=== PATIENT | female | born 1935 | race Caucasian/White ===

== ENCOUNTER 2022-03-16 15:31 | Inpatient (IN) | payer MEDICAID ==
[~2022-03-16] VITALS: Ht 162.6 cm; Wt 78.9 kg
--- NOTE | 2022-03-16 15:40 | NUR ---
BIB RA 93 FROM HOME,C/O SOB WITH RHONCHI, IMPROVED AFTER ALBUTEROL HHN WAS GIVEN ENROUTE. PLACED ON BED, AAOX4, BREATHING EVEN AND UNLABORED SATURATING AT 93%RA
--- NOTE | 2022-03-16 16:05 | NUR ---
BLOOD DRAWN AND SENT TO LAB
[2022-03-16 16:26] LABS: BASOPHILS # (AUTO) 0.1 K/uL (0.0-0.2); BASOPHILS % (AUTO) 0.6 % (0.0-2.0); EOSINOPHILS % (AUTO) 1.3 % (0.0-6.0); HEMATOCRIT 39 % (33-45); HEMOGLOBIN 12.2 g/dL (11.5-14.8); LYMPHOCYTES # (AUTO) 1.6 K/uL (0.8-4.8); LYMPHOCYTES % (AUTO) 18.2 % (20.0-44.0); MEAN CORPUSCULAR HGB CONC 32 g/dl (31.0-36.0); MEAN CORPUSCULAR VOLUME 81 fL (82-100); MONOCYTES # (AUTO) 0.3 K/uL (0.1-1.30); MONOCYTES % (AUTO) 3.6 % (2.0-12.0); NEUTROPHILS # (AUTO) 6.6 K/uL (1.8-8.9); NEUTROPHILS % (AUTO) 76.3 % (43.0-81.0); PLATELET COUNT (AUTO) 187 K/uL (150-450); RED BLOOD CELL COUNT(AUTO) 4.78 MIL/uL (4.0-5.2); WHITE BLOOD COUNT (AUTO) 8.6 K/uL (4.3-11.0)
[2022-03-16 16:47] LABS: CALCIUM, SERUM 8.6 mg/dL (8.5-10.1); CARBON DIOXIDE 27 mmol/L (21-32); CHLORIDE 105 mmol/L (98-107); CREATININE 1.9 mg/dL (0.6-1.3); GLUCOSE 237 mg/dL (74-106); POTASSIUM 3.1 mmol/L (3.5-5.1); SODIUM SERUM 143 mmol/L (136-145); UREA NITROGEN, BLOOD 36 mg/dL (7-18)
[2022-03-16] MEDS ORDERED: methylPREDNISolone SOD SUCC 125 MG/2ML VIAL IV ONE (17:00)
[2022-03-16] MEDS ORDERED: IPRATROPIUM NEB FS 0.5 MG/2.5 ML AMPUL.NEB NEB ONE (17:00)
[2022-03-16] MEDS ORDERED: ALBUTEROL FS 2.5 MG/3 ML VIAL.NEB NEB ONE (17:00)
[2022-03-16] MEDS ORDERED: APIX5TAB PO (17:16)
[2022-03-16] MEDS ORDERED: FURO40TA5 PO (17:16)
[2022-03-16] MEDS ORDERED: METO25TA20 PO (17:16)
[2022-03-16] MEDS ORDERED: PRAV10TA40 PO (17:16)
[2022-03-16] MEDS ORDERED: ALBU18HF2 IH (17:16)
[2022-03-16] MEDS ORDERED: HYDR-500 PO (17:16)
[2022-03-16] MEDS ORDERED: LOSA25TA27 PO (17:16)
[2022-03-16] MEDS ORDERED: methylPREDNISolone SOD SUCC 125 MG/2ML VIAL ONE (17:18)
[2022-03-16] MEDS ORDERED: IPRATROPIUM NEB FS 0.5 MG/2.5 ML AMPUL.NEB ONE (17:33)
[2022-03-16] MEDS ORDERED: ALBUTEROL FS 2.5 MG/0.5 ML VIAL.NEB ONE (17:33)
--- NOTE | 2022-03-16 18:20 | NUR ---
MOVE SHEET SUBMITTED.
--- NOTE | 2022-03-16 18:20 | NUR ---
SWAB FOR COVID19 SENT TO LAB
--- NOTE | 2022-03-16 22:28 | NUR ---
REPORT GIVEN TO CAIT RN ROOM 306-2 FOR MICAH
--- NOTE | 2022-03-16 22:57 | NUR ---
TRANSFERRED TO THIRD FLOOR UNDER ACLS
[2022-03-16] MEDS ORDERED: Z GUARD REMEDY 4 OZ OINT TP PRN (23:00)
[2022-03-16] MEDS ORDERED: ONDANSETRON HCL/PF 4 MG/2 ML VIAL IVP PRN (23:00)
[2022-03-16] MEDS ORDERED: ACETAMINOPHEN 325 MG TABLET PO PRN (23:00)
[2022-03-16] MEDS ORDERED: FUROSEMIDE 20 MG/2 ML VIAL IV ONE (23:00)
--- NOTE | 2022-03-16 23:00 | NUR ---
REPORT GIVEN TO EDELMIRA JOHNSON
--- NOTE | 2022-03-16 23:30 | NUR ---
PATIENT READING CONTROLLED A-FIB ON TELE MONITOR WITH 93 BPM.
[2022-03-17] VITALS: BP 158/89
[2022-03-17] MEDS: POTASSIUM CHLORIDE 10 MEQ TABLET.SA PO SCH ×2 (00:03→01:00)
[2022-03-17] MEDS ORDERED: hydrALAZINE HCL IV 20 MG VIAL IV PRN (00:30)
--- NOTE | 2022-03-17 00:55 | NUR ---
ADMISSION RN NOTES PATIENT TRANSFERRED IN UNIT AT AROUND 2300, ACCOMPANIED BY 2 ER NURSES, VIA [employer]. PATIENT IS A/OX4 AND IS CANADIAN SPEAKING ONLY. [facility]Nathalie PLYWOOD PATCHER (ID #[id number]) WAS USED TO ASKED ADMISSION QUESTIONS. PATIENT DENIES ANY PAIN AT THIS TIME. PATIENT WISHES TO BE FULL CODE WITH NO ADVANCED DIRECTIVES. PATIENT REFUSED SS FOR ADVANCED DIRECTIVE INQUIRY BECAUSE PER PATIENT SHE HAS A SW SEE HER VERY OFTEN IN HER HOME. PATIENT REPORTS HAVING A FALL 10 DAYS AGO, AND REPORTS BILA. KNEE SWELLING-- NON PITTING ON ASSESSMENT. PATIENT REPORTS HAVING PACEMAKER ON LCW. DENIES ANY MEDICAL HX BUT HAS HAD BILATERAL HIP REPLACEMENTS. BELONGINGS CHECKED, NEW ID BAND ON PATIENT. PATIENT HAS $20 IN HER BAG, AND REPORTS HAVING UPPER DENTURE. PATIENT DENIES SMOKING AND DRINKING ALCOHOL ONLY ON OCCASIONS. PATIENT REFUSED TO CALL SON AT THIS TIME. PATIENT REPORTS BEING UP-TO-DATE WITH HER IMMUNIZATIONS INCLUDING COVID. ORIENTED IN THE UNIT AND THE USE OF CALL LIGHT. PATIENT IS AMBULATORY WITH UNSTEADY GAIT. REPORTS USING CANE AT HOME. SAFETY IN PLACE. WILL CONTINUE WITH PLAN OF CARE FOR PATIENT AND FOLLOW THROUGH DOCTOR'S ORDERS.
[2022-03-17] MEDS ORDERED: ALBUTEROL FS 2.5 MG/3 ML VIAL.NEB NEB SCH (01:30)
[2022-03-17] MEDS: LEVALBUTEROL HCL NEB 1.25 MG/0.5 ML VIAL.NEB NEB SCH ×4 (02:12→20:05)
[2022-03-17] MEDS: IPRATROPIUM NEB FS 0.5 MG/2.5 ML AMPUL.NEB NEB SCH ×4 (02:12→20:05)
--- NOTE | 2022-03-17 02:17 | NUR ---
noc rn note 2nd dose of K-dur cannot be pulled out because it's pass time. 1st dose was given @0003 and order is q2 hours. asked [facility] to change the time. will give.
[2022-03-17] MEDS ORDERED: POTASSIUM CHLORIDE 10 MEQ TABLET.SA PO ONE (02:30)
[2022-03-17 04:00] VITALS: BP 146/91
[2022-03-17] MEDS: methylPREDNISolone SOD SUCC 40 MG/ML VIAL IV SCH ×3 (05:00→21:50)
[2022-03-17 06:33] LABS: CALCIUM, SERUM 9.7 mg/dL (8.5-10.1); CARBON DIOXIDE 22 mmol/L (21-32); CHLORIDE 105 mmol/L (98-107); CREATININE 1.8 mg/dL (0.6-1.3); GLUCOSE 100 mg/dL (74-106); PHOSPHORUS 3.4 mg/dL (2.5-4.9); POTASSIUM 4.3 mmol/L (3.5-5.1); SODIUM SERUM 136 mmol/L (136-145); UREA NITROGEN, BLOOD 58 mg/dL (7-18)
[2022-03-17 06:44] LABS: BASOPHILS % (AUTO) 0.4 % (0.0-2.0); EOSINOPHILS % (AUTO) 0.1 % (0.0-6.0); HEMATOCRIT 35 % (33-45); HEMOGLOBIN 11.3 g/dL (11.5-14.8); LYMPHOCYTES # (AUTO) 0.5 K/uL (0.8-4.8); LYMPHOCYTES % (AUTO) 5.1 % (20.0-44.0); MEAN CORPUSCULAR HGB CONC 33 g/dl (31.0-36.0); MEAN CORPUSCULAR VOLUME 80 fL (82-100); MONOCYTES # (AUTO) 0.2 K/uL (0.1-1.30); MONOCYTES % (AUTO) 2.6 % (2.0-12.0); NEUTROPHILS # (AUTO) 8.5 K/uL (1.8-8.9); NEUTROPHILS % (AUTO) 91.8 % (43.0-81.0); PLATELET COUNT (AUTO) 187 K/uL (150-450); RED BLOOD CELL COUNT(AUTO) 4.33 MIL/uL (4.0-5.2); WHITE BLOOD COUNT (AUTO) 9.3 K/uL (4.3-11.0)
[2022-03-17] MEDS: PANTOPRAZOLE 40 MG TABLET.DR PO SCH (06:52)
[2022-03-17 07:00] VITALS: BP 155/106
--- NOTE | 2022-03-17 07:35 | NUR ---
noc rn note called son Lynn # regarding mom's hospitalization. son aware of room # and visitation hours. request for to visit before 10 am because they both work. Plaster Caster, Mattie aware and Gricel approved. will make security aware.
--- NOTE | 2022-03-17 07:37 | NUR ---
noc rn closing needs attended. report given to lex Mathis for continuity of patient care.
--- NOTE | 2022-03-17 07:46 | NUR ---
RN OPENING NOTES PATIENT AWAKE IN BED RESTING, A/O X 4. NO S/S OF PAIN NOTED AT THIS TIME. ON ROOM AIR, NO DISTRESS OR SHORTNESS OF BREATH NOTED. IV ACCESS LAC #20G, INTACT, PATENT, FLUSHING WELL. PATIENT WITH EXTERNAL ANNEALING FURNACE TENDER WITH CURRENT READING OF A-FIB CONTROL AND HR 89. FALL AND SAFETY MEASURES IN PLACE, BED ALARM ON, BED IN LOW LOCK POSITION, CALL LIGHT AND TABLE WITHIN EASY REACH, SIDE RAILS UP X2. WILL CONTINUE TO MONITOR.
[2022-03-17 08:17] LABS: HDL CHOLESTEROL 15 mg/dL (40-60); LDL 29 mg/dL (0-99); TRIGLYCERIDES 32 mg/dL (30-150)
[2022-03-17] MEDS ORDERED: Medication Not On Formulary EA (Pravastatin Sodium 10 MG) PO SCH (09:00)
[2022-03-17] MEDS ORDERED: METOPROLOL TARTRATE 25 MG TABLET PO SCH (09:00)
[2022-03-17] MEDS: APIXABAN 5 MG TABLET PO SCH ×2 (09:13→17:00)
[2022-03-17 09:16] LABS: CHOLESTEROL 118 mg/dL (<200)
[2022-03-17 09:42] LABS: BILIRUBIN,URINE NEGATIVE (NEGATIVE); COLOR,URINE YELLOW (YELLOW); LEUKOCYTE ESTERASE ,URINE 2+ (NEGATIVE); NITRITE, URINE NEGATIVE (NEGATIVE); PH,URINE 8.5 (5.0-8.0); PROTEIN,URINE 1+ mg/dl (NEGATIVE); UGLUCOSE NEGATIVE (NEGATIVE); UROBILINOGEN,URINE 0.2 EU/dL (0.2)
[2022-03-17] MEDS ORDERED: BUMETANIDE INJ 8 MG in IV NS 0.9% 48 ML IV ONE (11:00)
[2022-03-17 11:09] LABS: BACTERIA,URINE Few /HPF (None Seen); SQUAMOUS EPITHELIAL CELL,UR Few /HPF (None Seen)
[2022-03-17 11:10] LABS: TRIPLE PHOSPHATE CRYSTAL,UR Rare /HPF (None Seen)
[2022-03-17 12:00] VITALS: BP 143/91
[2022-03-17 12:47] LABS: THYROID STIMULATING HORMONE 1.339 uIU/mL (0.358-3.74)
--- NOTE | 2022-03-17 19:00 | NUR ---
RN CLOSING NOTES PATIENT AWAKE IN BED RESTING, A/O X 4. NO S/S OF PAIN NOTED AT THIS TIME. ON ROOM AIR, NO DISTRESS OR SHORTNESS OF BREATH NOTED. IV ACCESS LAC #20G, INTACT, PATENT, FLUSHING WELL. PATIENT WITH EXTERNAL EXTENSION COURSE COORDINATOR WITH CURRENT READING OF A-FIB CONTROL AND HR 105. SCHEDULE MEDICATIONS ADMINISTERED. FALL AND SAFETY MEASURES IN PLACE, BED ALARM ON, BED IN LOW LOCK POSITION, CALL LIGHT AND TABLE WITHIN EASY REACH, SIDE RAILS UP X2. WILL ENDORSE TO SPINNER OPEN END.
--- NOTE | 2022-03-17 19:05 | NUR ---
FOOD PHOTOGRAPHER OPENING NOTES RECEIVED PT AWAKE IN BED, A/O X4, ABLE TO MAKE NEEDS KNOWN. ON RA WITH NO S/S OF SOB OR LABORED BREATHING. ON TELE MONITOR SHOWING AFIB @ 102 BPM. IV LAC #20G SL, INTACT AND PATENT. SAFETY MEASURES IN PLACE: BED IN LOW AND LOCKED POSITION; SIDE RAILS UP X2; BED ALARM ON; CALL LIGHT AND TRAY TABLE WITHIN REACH. WILL CONTINUE TO MONITOR AND ASSIST.
[2022-03-17 20:15] VITALS: BP 143/93
[2022-03-17] MEDS ORDERED: ATORVASTATIN 10 MG TABLET PO SCH (22:00)
[2022-03-18 00:24] VITALS: BP 149/85
[2022-03-18] MEDS: LEVALBUTEROL HCL NEB 1.25 MG/0.5 ML VIAL.NEB NEB SCH ×4 (02:01→19:59)
[2022-03-18] MEDS: IPRATROPIUM NEB FS 0.5 MG/2.5 ML AMPUL.NEB NEB SCH ×4 (02:01→19:59)
[2022-03-18 04:03] VITALS: BP 144/80
[2022-03-18] MEDS: methylPREDNISolone SOD SUCC 40 MG/ML VIAL IV SCH ×3 (05:02→20:12)
[2022-03-18 06:13] LABS: ALANINE AMINOTRANSFERASE 22 U/L (12-78); ALBUMIN 3.7 g/dL (3.4-5.0); ALKALINE PHOSPHATASE 84 U/L (46-116); ASPARTATE AMINOTRANSFERASE 13 U/L (15-37); BILIRUBIN,TOTAL 0.4 mg/dL (0.2-1.0); CALCIUM, SERUM 9.1 mg/dL (8.5-10.1); CARBON DIOXIDE 25 mmol/L (21-32); CHLORIDE 104 mmol/L (98-107); CREATININE 1.7 mg/dL (0.6-1.3); GLUCOSE 201 mg/dL (74-106); PHOSPHORUS 3.2 mg/dL (2.5-4.9); POTASSIUM 3.6 mmol/L (3.5-5.1); SODIUM SERUM 142 mmol/L (136-145); TOTAL PROTEIN, SERUM 7.3 g/dL (6.4-8.2); UREA NITROGEN, BLOOD 38 mg/dL (7-18)
[2022-03-18] MEDS ORDERED: DIGOXIN INJ 0.5 MG/2 ML AMPUL IV ONE (06:30)
--- NOTE | 2022-03-18 06:41 | NUR ---
RN NOTE NOTED PT THIS MORNING WITH UNCONTROLLED A-FIB FLUCTUATING 160-190s. REPORTED TO DR PRINCE RECEIVED ORDER FOR ONE TIME DOSE OF DIGOXIN 0.25MG X1 GIVEN TO PT TOLERATED WELL. PT NOW READING A-FIB 120-130S AT THIS TIME.
[2022-03-18 06:51] LABS: BASOPHILS % (AUTO) 0.1 % (0.0-2.0); HEMATOCRIT 36 % (33-45); HEMOGLOBIN 11.5 g/dL (11.5-14.8); LYMPHOCYTES # (AUTO) 0.5 K/uL (0.8-4.8); LYMPHOCYTES % (AUTO) 4.4 % (20.0-44.0); MEAN CORPUSCULAR HGB CONC 32 g/dl (31.0-36.0); MEAN CORPUSCULAR VOLUME 81 fL (82-100); MONOCYTES # (AUTO) 0.4 K/uL (0.1-1.30); NEUTROPHILS # (AUTO) 10.2 K/uL (1.8-8.9); NEUTROPHILS % (AUTO) 91.5 % (43.0-81.0); PLATELET COUNT (AUTO) 196 K/uL (150-450); RED BLOOD CELL COUNT(AUTO) 4.45 MIL/uL (4.0-5.2); WHITE BLOOD COUNT (AUTO) 11.1 K/uL (4.3-11.0)
[2022-03-18 07:00] VITALS: BP 163/116
--- NOTE | 2022-03-18 07:05 | NUR ---
RESIDENTIAL RECYCLE DRIVER CLOSING NOTES PT AWAKE IN BED, A/O X4, ABLE TO MAKE NEEDS KNOWN. STABLE ON RA WITH NO S/S OF SOB OR LABORED BREATHING. ON TELE MONITOR SHOWING AFIB WITH PVCs @ 130 BPM. IV LAC #20G SL, INTACT AND PATENT. ALL CARE PROVIDED AND MEDICATIONS ADMINISTERED TOLERATED WELL. SAFETY MEASURES MAINTAINED: BED IN LOW AND LOCKED POSITION; SIDE RAILS UP X2; BED ALARM ON; CALL LIGHT AND TRAY TABLE WITHIN REACH. WILL ENDORSE MICAH TO COMPUTATIONAL GENETICIST NURSE.
--- NOTE | 2022-03-18 07:40 | NUR ---
HOME THERAPY TEACHER OPENING NOTES RECEIVED PT AWAKE IN BED, A/O X4, ABLE TO MAKE NEEDS KNOWN. ON RA WITH NO S/S OF SOB OR LABORED BREATHING. TELE MONITOR READS AFIB HR-106. IV ACCESS @ LAC #20G SL, INTACT AND PATENT. PT IS AMBULATORY. SAFETY MEASURES IN PLACE: BED IN LOW AND LOCKED POSITION; SIDE RAILS UP X2; BED ALARM ON; CALL LIGHT AND TRAY TABLE WITHIN REACH. WILL CONTINUE WITH PLAN OF CARE DURING SHIFT.
[2022-03-18] MEDS: DILTIAZEM HCL CD 240 MG PO SCH ×2 (09:00→09:01)
[2022-03-18] MEDS: APIXABAN 5 MG TABLET PO SCH ×2 (09:03→17:09)
--- NOTE | 2022-03-18 09:45 | NUR ---
SUPERVISOR CLAIMS NOTES: DISREGARD WEIGHT ENTRY 03/18/22 FOR THIS PT, ERROR, CORRECT WT ENTERED.
[2022-03-18] MEDS: PANTOPRAZOLE 40 MG TABLET.DR PO SCH (11:07)
[2022-03-18 12:00] VITALS: BP 163/92
[2022-03-18] MEDS: DIGOXIN INJ 0.5 MG/2 ML AMPUL IV SCH ×2 (12:29→17:07)
[2022-03-18 16:00] VITALS: BP 157/88
[2022-03-18] MEDS: SOD FERRIC GLUC 125 MG in IV NS 0.9% 100 ML IV SCH (16:28)
--- NOTE | 2022-03-18 19:35 | NUR ---
BLUEPRINT MAKER CLOSING NOTES PT AWAKE IN BED, A/O X4, ABLE TO MAKE NEEDS KNOWN. STABLE ON RA WITH NO S/S OF SOB OR LABORED BREATHING. ON TELE MONITOR SHOWING AFIB WITH PVCs, HR-98. IV ACCESS AT L WRIST #22G SL, INTACT AND PATENT. DUE MEDS GIVEN, NEEDS ATTENDED, KEPT PT CLEAN, DRY AND COMFORTABLE. SAFETY MEASURES MAINTAINED: BED IN LOW AND LOCKED POSITION; SIDE RAILS UP X2; BED ALARM ON; CALL LIGHT AND TRAY TABLE WITHIN REACH, ENDORSED TO PM SHIFT.
--- NOTE | 2022-03-18 19:36 | NUR ---
BOWLING BALL PATCHER OPENING NOTES RECEIVED PT AWAKE IN BED, A/O X4, ABLE TO MAKE NEEDS KNOWN. ON RA WITH NO S/S OF SOB OR LABORED BREATHING. ON TELE MONITOR SHOWING AFIB WITH PVCs, HR-125. IV ACCESS AT L WRIST #22G SL, INTACT AND PATENT. SAFETY MEASURES IN PLACE: BED IN LOW AND LOCKED POSITION; SIDE RAILS UP X2; BED ALARM ON; CALL LIGHT AND TRAY TABLE WITHIN REACH. WILL CONTINUE TO MONITOR AND ASSIST.
[2022-03-18 20:00] VITALS: BP 117/81
[2022-03-19] VITALS: BP 148/82
[2022-03-19] MEDS: DIGOXIN INJ 0.5 MG/2 ML AMPUL IV SCH (00:35)
[2022-03-19] MEDS: IPRATROPIUM NEB FS 0.5 MG/2.5 ML AMPUL.NEB NEB SCH ×4 (02:22→20:22)
[2022-03-19] MEDS: LEVALBUTEROL HCL NEB 1.25 MG/0.5 ML VIAL.NEB NEB SCH ×4 (02:22→20:22)
[2022-03-19 04:00] VITALS: BP 146/76
[2022-03-19] MEDS: methylPREDNISolone SOD SUCC 40 MG/ML VIAL IV SCH ×2 (05:09→12:07)
[2022-03-19 05:43] LABS: HEMATOCRIT 39 % (33-45); HEMOGLOBIN 12.7 g/dL (11.5-14.8); LYMPHOCYTES # (AUTO) 0.5 K/uL (0.8-4.8); LYMPHOCYTES % (AUTO) 5.1 % (20.0-44.0); MEAN CORPUSCULAR HGB CONC 33 g/dl (31.0-36.0); MEAN CORPUSCULAR VOLUME 80 fL (82-100); MONOCYTES # (AUTO) 0.3 K/uL (0.1-1.30); MONOCYTES % (AUTO) 3.1 % (2.0-12.0); NEUTROPHILS # (AUTO) 9.4 K/uL (1.8-8.9); NEUTROPHILS % (AUTO) 91.8 % (43.0-81.0); PLATELET COUNT (AUTO) 220 K/uL (150-450); RED BLOOD CELL COUNT(AUTO) 4.85 MIL/uL (4.0-5.2); WHITE BLOOD COUNT (AUTO) 10.3 K/uL (4.3-11.0)
[2022-03-19 05:59] LABS: CALCIUM, SERUM 9.1 mg/dL (8.5-10.1); CARBON DIOXIDE 27 mmol/L (21-32); CHLORIDE 104 mmol/L (98-107); CREATININE 1.6 mg/dL (0.6-1.3); GLUCOSE 193 mg/dL (74-106); PHOSPHORUS 3.7 mg/dL (2.5-4.9); POTASSIUM 3.6 mmol/L (3.5-5.1); SODIUM SERUM 143 mmol/L (136-145); UREA NITROGEN, BLOOD 44 mg/dL (7-18)
--- NOTE | 2022-03-19 07:10 | NUR ---
COSTUME DESIGNER CLOSING NOTES PT AWAKE IN BED AT THIS TIME, A/O X4, ABLE TO MAKE NEEDS KNOWN, SPEAKS LITTLE PERUVIAN. STABLE ON RA WITH NO S/S OF SOB OR LABORED BREATHING. ON TELE MONITOR SHOWING AFIB WITH PVCs, HR-108. IV ACCESS AT L WRIST #22G SL, INTACT AND PATENT. ALL CARE PROVIDED AND ADMINISTERED MEDICATIONS TOLERATED WELL. SAFETY MEASURES MAINTAINED: BED IN LOW AND LOCKED POSITION; SIDE RAILS UP X2; BED ALARM ON; CALL LIGHT AND TRAY TABLE WITHIN REACH. WILL ENDORSE MICAH TO GROOMING ASSISTANT NURSE.
--- NOTE | 2022-03-19 07:15 | NUR ---
FEED IN WORKER OPENING NOTES: RECEIVED PT AWAKE IN BED, A/O X4, ABLE TO MAKE NEEDS KNOWN. STABLE ON RA WITH NO S/S OF SOB OR LABORED BREATHING, DENIES PAIN AT THIS TIME. ON TELE MONITOR READING AFIB, HR-99. IV ACCESS AT L WRIST #22G SL, INTACT AND PATENT. SAFETY MEASURES MAINTAINED: BED IN LOW AND LOCKED POSITION; SIDE RAILS UP X2; BED ALARM ON; CALL LIGHT AND TRAY TABLE WITHIN REACH, WILL CONT WITH PLAN OF CARE DURING SHIFT.
[2022-03-19 08:00] VITALS: BP 145/94
[2022-03-19] MEDS: PANTOPRAZOLE 40 MG TABLET.DR PO SCH (08:30)
[2022-03-19] MEDS: DILTIAZEM HCL CD 240 MG PO SCH (08:33)
[2022-03-19] MEDS: APIXABAN 5 MG TABLET PO SCH ×2 (08:34→16:18)
[2022-03-19] MEDS: MUPIROCIN OINT 2% 22 GM TUBE NS SCH ×2 (09:26→21:19)
[2022-03-19] MEDS: CEFTRIAXONE 1 G in IV D5W 50 ML IV SCH (10:05)
[2022-03-19 12:00] VITALS: BP 148/80
[2022-03-19] MEDS: DIGOXIN 0.125 MG TABLET PO SCH (12:07)
[2022-03-19 16:00] VITALS: BP 134/74
[2022-03-19] MEDS: SOD FERRIC GLUC 125 MG in IV NS 0.9% 100 ML IV SCH (17:23)
--- NOTE | 2022-03-19 19:20 | NUR ---
RN NOTES RECEIVED REPORT FROM MORNING RN PATIENT IN BED A/O X4 GUYANESE SPEAKING. ON ROOM AIR SATING 95% NO SOB NO DISTRESS NOTED AT THIS TIME. WITH IV ACCESS AT L WRIST #22 PATENT FLUSHES WELL. ON TELE MONITOR WITH RHYTHM AFIB @ 95. ALL SAFETY MEASURES IN PLACE AT ALL TIMES. HOB ELEVATED. CALL LIGHT WITHIN REACH. WILL CLOSELY MONITOR THE PATIENT
--- NOTE | 2022-03-19 19:23 | NUR ---
AUTO GLASS WORKER CLOSING NOTES PT AWAKE IN BED, A/O X4, ABLE TO MAKE NEEDS KNOWN. STABLE ON RA WITH NO S/S OF SOB OR LABORED BREATHING. ON TELE MONITOR SHOWING AFIB, HR-89. IV ACCESS AT L WRIST #22G SL, INTACT AND PATENT. DUE MEDS GIVEN, NEEDS ATTENDED, KEPT PT CLEAN, DRY AND COMFORTABLE. SAFETY MEASURES MAINTAINED: BED IN LOW AND LOCKED POSITION; SIDE RAILS UP X2; BED ALARM ON; CALL LIGHT AND TRAY TABLE WITHIN REACH, ENDORSED TO PM SHIFT
[2022-03-20] MEDS: IPRATROPIUM NEB FS 0.5 MG/2.5 ML AMPUL.NEB NEB SCH ×4 (01:58→20:18)
[2022-03-20] MEDS: LEVALBUTEROL HCL NEB 1.25 MG/0.5 ML VIAL.NEB NEB SCH ×4 (01:58→20:18)
[2022-03-20 05:00] VITALS: BP 142/83
[2022-03-20 06:17] LABS: CALCIUM, SERUM 8.9 mg/dL (8.5-10.1); CARBON DIOXIDE 25 mmol/L (21-32); CHLORIDE 103 mmol/L (98-107); CREATININE 1.8 mg/dL (0.6-1.3); GLUCOSE 164 mg/dL (74-106); POTASSIUM 4.2 mmol/L (3.5-5.1); SODIUM SERUM 140 mmol/L (136-145); UREA NITROGEN, BLOOD 49 mg/dL (7-18)
[2022-03-20 06:27] LABS: BASOPHILS % (AUTO) 0.1 % (0.0-2.0); HEMATOCRIT 42 % (33-45); HEMOGLOBIN 13.6 g/dL (11.5-14.8); LYMPHOCYTES # (AUTO) 0.8 K/uL (0.8-4.8); LYMPHOCYTES % (AUTO) 6.7 % (20.0-44.0); MEAN CORPUSCULAR HGB CONC 33 g/dl (31.0-36.0); MEAN CORPUSCULAR VOLUME 80 fL (82-100); MONOCYTES # (AUTO) 0.9 K/uL (0.1-1.30); NEUTROPHILS # (AUTO) 10.8 K/uL (1.8-8.9); NEUTROPHILS % (AUTO) 86.2 % (43.0-81.0); PLATELET COUNT (AUTO) 258 K/uL (150-450); RED BLOOD CELL COUNT(AUTO) 5.23 MIL/uL (4.0-5.2); WHITE BLOOD COUNT (AUTO) 12.5 K/uL (4.3-11.0)
[2022-03-20] MEDS: PANTOPRAZOLE 40 MG TABLET.DR PO SCH (06:45)
--- NOTE | 2022-03-20 06:54 | NUR ---
RN NOTES PATIENT REMAINS STABLE NO SIGNIFICANT CHANGES IN HEALTH CONDITION. ALL DUE MEDS GIVEN ORDERED. OM TELE MONITOR WITH AFIB AT 89. IV ACCESS AT L WRIST PATNET FLUSHES WELL. ALL SAFETY MEASURES IN PLACE. CALL LIGHT WITHIN REACH. FREQUENT VISUAL MONITORING RENDERED. WILL ENDORSED TO MORNING SHIFT FOR MICAH
[2022-03-20 08:00] VITALS: BP 147/82
[2022-03-20] MEDS: FUROSEMIDE 100 MG/10 ML VIAL IV SCH ×3 (08:49→16:07)
[2022-03-20] MEDS: MUPIROCIN OINT 2% 22 GM TUBE NS SCH ×2 (08:50→21:53)
[2022-03-20] MEDS: DILTIAZEM HCL CD 240 MG PO SCH (08:50)
[2022-03-20] MEDS: methylPREDNISolone SOD SUCC 40 MG/ML VIAL IV SCH ×2 (08:50→16:07)
[2022-03-20] MEDS: CEFTRIAXONE 1 G in IV D5W 50 ML IV SCH (08:52)
[2022-03-20] MEDS: APIXABAN 5 MG TABLET PO SCH ×2 (08:52→16:07)
--- NOTE | 2022-03-20 09:17 | NUR ---
EDELMIRA NOTE DAILY WEIGHT TAKEN ON AIR MATTRESS, CHARGE NURSE AWARE, WILL ENDORSE TO SKI PRODUCTION SUPERVISOR NURSE Addendum: 03/20/22 at 0918 by YUEN NOLASCO RN 185.7 LBS ON BED SCALE Addendum: 03/20/22 at 0919 by UYEN NOLASCO RN WRONG PATIENT
[2022-03-20] MEDS: DIGOXIN 0.125 MG TABLET PO SCH (13:38)
[2022-03-20] MEDS: SOD FERRIC GLUC 125 MG in IV NS 0.9% 100 ML IV SCH (15:02)
[2022-03-20 16:00] VITALS: BP 122/72
--- NOTE | 2022-03-20 19:00 | NUR ---
OUTDOOR EMERGENCY CARE TECHNICIAN OPENING NOTE PATIENT IS OUT FOR SURGERY, NOT COMING BACK TO UNIT YET . CHANGE SHIFT REPORT RECEIVED FROM DAY SHIFT RN. Addendum: 03/20/22 at 2108 by DAVID AMARO RN ERROR. WRONG PATIENT
--- NOTE | 2022-03-20 19:10 | NUR ---
CONTRACT PREPARER OPENING NOTES PATIENT IS IN BED SLEEPING. EASILY BEING WAKING UP. PATIENT IS ALERT AND ORIENTED, A/O X4. SHE IS ABLE TO MAKE HER NEEDS KNOWN. PATIENT IS ON RA, TOLERATED WELL. NO S/S OF SOB OR DISTRESS. PATIENT IS ON TELE MONITOR, HEART RHYTHM IS A-FIB WITH PVCS. IV ACCESS IS AT LEFT WRIST, #22G, SL. SAFETY PRECAUTIONS IN PLACE: BED IN LOW AND LOCKED POSITION; SIDE RAILS UP X2; CALL LIGHT AND TRAY TABLE WITHIN REACH. WILL MONITOR AND CONTINUE PROVIDING CARE TO THE PATIENT THROUGH THE SHIFT.
--- NOTE | 2022-03-20 19:15 | NUR ---
RN CLOSING NOTES PATIENT REMAINS STABLE NO SIGNIFICANT CHANGES IN HEALTH CONDITION. ALL DUE MEDS GIVEN ORDERED. TELE MONITOR WITH AFIB AT 85 WITH PVC RUNS. IV ACCESS AT L WRIST PATENT SL, AND FLUSHES WELL. ALL SAFETY MEASURES IN PLACE. CALL LIGHT WITHIN REACH. FREQUENT VISUAL MONITORING RENDERED. WILL ENDORSE CONTINUITY OF CARE.
[2022-03-20 20:00] VITALS: BP 149/84
[2022-03-21] VITALS: BP 147/92
[2022-03-21] MEDS: IPRATROPIUM NEB FS 0.5 MG/2.5 ML AMPUL.NEB NEB SCH ×3 (00:41→13:30)
[2022-03-21] MEDS: LEVALBUTEROL HCL NEB 1.25 MG/0.5 ML VIAL.NEB NEB SCH ×3 (00:41→13:30)
[2022-03-21 04:00] VITALS: BP 144/69
[2022-03-21 06:23] LABS: BASOPHILS % (AUTO) 0.1 % (0.0-2.0); HEMATOCRIT 44 % (33-45); HEMOGLOBIN 14.3 g/dL (11.5-14.8); LYMPHOCYTES # (AUTO) 0.7 K/uL (0.8-4.8); LYMPHOCYTES % (AUTO) 6.4 % (20.0-44.0); MEAN CORPUSCULAR HGB CONC 33 g/dl (31.0-36.0); MEAN CORPUSCULAR VOLUME 80 fL (82-100); MONOCYTES # (AUTO) 0.6 K/uL (0.1-1.30); MONOCYTES % (AUTO) 5.7 % (2.0-12.0); NEUTROPHILS # (AUTO) 9.4 K/uL (1.8-8.9); NEUTROPHILS % (AUTO) 87.8 % (43.0-81.0); PLATELET COUNT (AUTO) 260 K/uL (150-450); RED BLOOD CELL COUNT(AUTO) 5.51 MIL/uL (4.0-5.2); WHITE BLOOD COUNT (AUTO) 10.7 K/uL (4.3-11.0)
[2022-03-21 06:56] LABS: CALCIUM, SERUM 8.8 mg/dL (8.5-10.1); CARBON DIOXIDE 29 mmol/L (21-32); CHLORIDE 101 mmol/L (98-107); CREATININE 1.7 mg/dL (0.6-1.3); GLUCOSE 182 mg/dL (74-106); POTASSIUM 3.6 mmol/L (3.5-5.1); SODIUM SERUM 142 mmol/L (136-145); UREA NITROGEN, BLOOD 55 mg/dL (7-18)
--- NOTE | 2022-03-21 07:06 | NUR ---
CLERICAL MANAGER CLOSING NOTES PATIENT IS IN BED SLEEPING. EASILY BEING WAKING UP. PATIENT IS ON RA, TOLERATED WELL. NO S/S OF SOB OR DISTRESS. PATIENT IS ON TELE MONITOR, HEART RHYTHM IS A-FIB WITH PVCS AT 80S TO 90S. HER HR GOES AROUND 100S WHEN SHE GOES TO THE BATHROOM. IV ACCESS IS AT LEFT WRIST, #22G, SL. PATENT AND INTACT. SAFETY PRECAUTIONS IN PLACE: BED IN LOW AND LOCKED POSITION; SIDE RAILS UP X2; CALL LIGHT AND TRAY TABLE WITHIN REACH. WILL ENDORSE NEXT SHIFT NURSE FOR CONTINUE CARE OF THIS PATIENT.
--- NOTE | 2022-03-21 07:07 | NUR ---
BIRTH CERTIFICATE CLERK OPENING NOTES RECEIVED PATIENT AWAKE IN BED, A/Ox4, ETHIOPIAN SPEAKING, ABLE TO MAKE NEEDS KNOWN. ON ROOM AIR NO S/S OF RESPIRATORY DISTRESS. ON TELE MONITORING SHOWING A-FIB WITH PVCs HR 84. IV ACCES L WRIST #22 SL. INTACT AND PATENT. CONTINENT HAS BATHROOM PRIVILEGE. SKIN INTACT. SAFETY MEASURES IN PLACE: BED LOCKED AND IN LOWEST POSITION, SIDE RAILS UPx2, CALL LIGHT WITHIN REACH, HOB ELEVATED. WILL CONTINUE TO MONITOR.
[2022-03-21 08:00] VITALS: BP 144/73
[2022-03-21] MEDS: PANTOPRAZOLE 40 MG TABLET.DR PO SCH (08:11)
[2022-03-21 08:12] VITALS: BP 144/73
[2022-03-21] MEDS: methylPREDNISolone SOD SUCC 40 MG/ML VIAL IV SCH (08:12)
[2022-03-21] MEDS: DILTIAZEM HCL CD 240 MG PO SCH (08:12)
[2022-03-21] MEDS: APIXABAN 5 MG TABLET PO SCH (08:12)
[2022-03-21] MEDS: MUPIROCIN OINT 2% 22 GM TUBE NS SCH (08:18)
[2022-03-21] MEDS: CEFTRIAXONE 1 G in IV D5W 50 ML IV SCH (09:17)
[2022-03-21] MEDS ORDERED: ALBU18HF2 IH (09:43)
[2022-03-21] MEDS ORDERED: PRED50TA PO (09:43)
[2022-03-21] MEDS ORDERED: LEVO500T90 PO (09:43)
[2022-03-21] MEDS: DIGOXIN 0.125 MG TABLET PO SCH (12:24)
--- NOTE | 2022-03-21 15:00 | NUR ---
ONLINE ADVERTISING ANALYST NOTES PATIENT D/C HOME, STABLE A/Ox4, ABLE TO MAKE NEEDS KNOWN. STABLE ON ROOM AIR, NO S/S OF RESPIRATORY DISTRESS. HEALTH TEACHINGS AND DISCHARGE INSTRUCTIONS TOLD TO FAMILY AND PATIENT. VERBALIZED UNDERSTANDING. FORMS COPIED AND FILED INTO CHART. SKIN INTACT. IV ACCESS REMOVED, PRESSURE DRESSING APPLIED. ID BAND REMOVED. PATIENT LEFT UNIT VIA WHEELCHAIR WITH SON ACCOMPANIED BY AURY MCINTOSH @1430. CHARGE NURSE AND MD AWARE OF DISCHARGE.
== END 2022-03-21 13:00 | disposition home or self-care (01) | DRG 194 ==
LOC: ER 15:34 → TELE 20:51
PROVIDERS: ADMIT Nurse Practitioner Acute Care; ATTEND Nurse Practitioner Acute Care
DX: I13.0 Hypertensive heart and chronic kidney disease with heart failure and stage 1 through stage 4 chronic kidney disease, or unspecified chronic kidney disease (principal); N17.0 Acute kidney failure with tubular necrosis; J96.01 Acute respiratory failure with hypoxia; J45.901 Unspecified asthma with (acute) exacerbation; I27.20 Pulmonary hypertension, unspecified; N39.0 Urinary tract infection, site not specified; I48.20 Chronic atrial fibrillation, unspecified; B96.4 Proteus (mirabilis) (morganii) as the cause of diseases classified elsewhere; E11.22 Type 2 diabetes mellitus with diabetic chronic kidney disease; N18.9 Chronic kidney disease, unspecified; I50.33 Acute on chronic diastolic (congestive) heart failure; E11.65 Type 2 diabetes mellitus with hyperglycemia; E78.5 Hyperlipidemia, unspecified; Z95.0 Presence of cardiac pacemaker; E87.6 Hypokalemia; D50.9 Iron deficiency anemia, unspecified; Z20.822 Contact with and (suspected) exposure to COVID-19
CPT/HCPCS: 36415; 71045-TC; 76770-TC; 80048-TC; 80053-TC; 80061-TC; 81001; 82728-TC; 83540-TC; 83735-TC; 83880; 84100-TC; 84439-TC; 84443-TC; 84484-TC; 85025-TC; 87081-TC; 87086-TC; 87186-TC; 92526; 92611-TC; 93307-TC; 93970-TC; 94799-TC; 97112-TC; 97116-TC; 97530-TC; C9803; G0378; J0696; J1160; J1940; J2916; J2920; J2930; J3490; J7030; J7050; J7060

== ENCOUNTER 2024-10-09 11:31 | Inpatient (IN) | payer MEDICAID ==
[~2024-10-09] VITALS: Ht 162.6 cm; Wt 80.7 kg
[~2024-10-09 11:31] MED LIST: ALBU18HF2 IH; APIX5TAB PO; FURO40TA5 PO; HYDR-500 PO; LEVO500T90 PO; LOSA25TA27 PO; METO25TA20 PO; PRAV10TA40 PO; PRED50TA PO
[2024-10-09 11:58] LABS: BASOPHILS # (AUTO) 0.1 K/uL (0.0-0.2); EOSINOPHILS # (AUTO) 0.1 K/uL (0.0-0.7); EOSINOPHILS % (AUTO) 1.4 % (0.0-6.0); HEMATOCRIT 27 % (33-45); HEMOGLOBIN 8.6 g/dL (11.5-14.8); LYMPHOCYTES # (AUTO) 1.5 K/uL (0.8-4.8); LYMPHOCYTES % (AUTO) 14.4 % (20.0-44.0); MEAN CORPUSCULAR HEMOGLOBIN 27 PG (26.0-33.0); MEAN CORPUSCULAR HGB CONC 32 g/dl (31.0-36.0); MEAN CORPUSCULAR VOLUME 85 fL (82-100); MONOCYTES # (AUTO) 0.8 K/uL (0.1-1.30); MONOCYTES % (AUTO) 7.9 % (2.0-12.0); NEUTROPHILS # (AUTO) 7.7 K/uL (1.8-8.9); NEUTROPHILS % (AUTO) 75.3 % (43.0-81.0); PLATELET COUNT (AUTO) 374 K/uL (150-450); RED BLOOD CELL COUNT(AUTO) 3.16 MIL/uL (4.0-5.2); RED CELL DISTRIBUTION WIDTH 18.3 % (11.5-15.0); WHITE BLOOD COUNT (AUTO) 10.2 K/uL (4.3-11.0)
[2024-10-09 12:09] LABS: CALCIUM, SERUM 8.9 mg/dL (8.5-10.1); CARBON DIOXIDE 24 mmol/L (21-32); CHLORIDE 106 mmol/L (98-107); CREATININE 0.8 mg/dL (0.6-1.3); GLUCOSE 152 mg/dL (74-106); POTASSIUM 3.5 mmol/L (3.5-5.1); SODIUM SERUM 138 mmol/L (136-145); UREA NITROGEN, BLOOD 23 mg/dL (7-18)
[2024-10-09 12:15] LABS: ALANINE AMINOTRANSFERASE 48 U/L (12-78); ALKALINE PHOSPHATASE 167 U/L (46-116); ASPARTATE AMINOTRANSFERASE 50 U/L (15-37); BILIRUBIN,DIRECT 0.3 mg/dL (0.0-0.2); BILIRUBIN,TOTAL 0.6 mg/dL (0.2-1.0); LIPASE 28 U/L (16-77); TOTAL PROTEIN, SERUM 7.3 g/dL (6.4-8.2)
[2024-10-09 12:20] LABS: MAGNESIUM 2.2 mg/dL (1.8-2.4)
[2024-10-09 12:23] LABS: THYROID STIMULATING HORMONE 5.13 uIU/mL (0.358-3.74)
[2024-10-09 12:33] LABS: APPEARANCE,URINE CLEAR (CLEAR); BILIRUBIN,URINE NEGATIVE (NEGATIVE); BLOOD, URINE TRACE-INTA Ery/uL (NEGATIVE); COLOR,URINE YELLOW (YELLOW); KETONES,URINE TRACE mg/dL (NEGATIVE); LEUKOCYTE ESTERASE ,URINE NEGATIVE (NEGATIVE); NITRITE, URINE NEGATIVE (NEGATIVE); PH,URINE 5.5 (5.0-8.0); PROTEIN,URINE TRACE mg/dl (NEGATIVE); UGLUCOSE NEGATIVE (NEGATIVE)
[2024-10-09] MEDS ORDERED: FUROSEMIDE 40 MG/4 ML VIAL ONE (12:38)
[2024-10-09] MEDS: FUROSEMIDE 40 MG/4 ML VIAL IV ONE (12:42)
[2024-10-09 12:49] LABS: ADD URINE CULTURE NO; BACTERIA,URINE Rare /HPF (None Seen); RBC,URINE 0-2 /HPF (0-2); SQUAMOUS EPITHELIAL CELL,UR 0-2 /HPF (None Seen); WBC,URINE 0-2 /HPF (0-3)
[2024-10-09 12:50] LABS: CALCIUM OXALATE CRYSTALS,UR Moderate /HPF (None Seen)
[2024-10-09] MEDS ORDERED: ACETAMINOPHEN 325 MG TABLET PO PRN (13:30)
[2024-10-09] MEDS ORDERED: MAG HYDROX/AL HYDROX/SIMETH 30 ML UDC PO PRN (13:30)
[2024-10-09] MEDS ORDERED: Z GUARD REMEDY 4 OZ OINT TP PRN (13:30)
[2024-10-09] MEDS ORDERED: ONDANSETRON HCL/PF 4 MG/2 ML VIAL IVP PRN (13:30)
[2024-10-09] MEDS ORDERED: MAGNESIUM HYDROXIDE 30 ML UDC PO PRN (13:30)
[2024-10-09 14:45] VITALS: BP 156/77; TEMP 97.7; O2SAT 97
[2024-10-09] MEDS: ENOXAPARIN SODIUM 40 MG/0.4 ML DISP.SYRIN SQ SCH (14:46)
[2024-10-09 16:00] VITALS: BP 146/73; TEMP 97.7; O2SAT 97
[2024-10-09 20:00] VITALS: BP 172/68; TEMP 98.8; O2SAT 98
[2024-10-09] MEDS: FUROSEMIDE 20 MG/2 ML VIAL IV SCH (20:44)
[2024-10-10] VITALS (9 sets, daily range): BP systolic 145–169; BP diastolic 59–83; TEMP 98.1–99.7; O2SAT 94–99
[2024-10-10] MEDS: hydrALAZINE HCL IV 20 MG VIAL IV PRN (00:16)
[2024-10-10 06:57] LABS: BASOPHILS # (AUTO) 0.1 K/uL (0.0-0.2); BASOPHILS % (AUTO) 0.7 % (0.0-2.0); EOSINOPHILS # (AUTO) 0.2 K/uL (0.0-0.7); EOSINOPHILS % (AUTO) 1.9 % (0.0-6.0); HEMATOCRIT 27 % (33-45); HEMOGLOBIN 8.9 g/dL (11.5-14.8); LYMPHOCYTES # (AUTO) 1.6 K/uL (0.8-4.8); LYMPHOCYTES % (AUTO) 17.1 % (20.0-44.0); MEAN CORPUSCULAR HEMOGLOBIN 27 PG (26.0-33.0); MEAN CORPUSCULAR HGB CONC 32 g/dl (31.0-36.0); MEAN CORPUSCULAR VOLUME 84 fL (82-100); MONOCYTES # (AUTO) 0.9 K/uL (0.1-1.30); MONOCYTES % (AUTO) 10.3 % (2.0-12.0); NEUTROPHILS # (AUTO) 6.4 K/uL (1.8-8.9); PLATELET COUNT (AUTO) 347 K/uL (150-450); RED BLOOD CELL COUNT(AUTO) 3.27 MIL/uL (4.0-5.2); RED CELL DISTRIBUTION WIDTH 18.2 % (11.5-15.0); WHITE BLOOD COUNT (AUTO) 9.1 K/uL (4.3-11.0)
[2024-10-10 07:17] LABS: CALCIUM, SERUM 8.6 mg/dL (8.5-10.1); CARBON DIOXIDE 24 mmol/L (21-32); CHLORIDE 104 mmol/L (98-107); CREATININE 0.8 mg/dL (0.6-1.3); GLUCOSE 124 mg/dL (74-106); MAGNESIUM 1.9 mg/dL (1.8-2.4); NT-PRO BNP 5173 pg/mL (0-125); PHOSPHORUS 2.7 mg/dL (2.5-4.9); SODIUM SERUM 142 mmol/L (136-145); UREA NITROGEN, BLOOD 20 mg/dL (7-18)
[2024-10-10] MEDS: PANTOPRAZOLE 40 MG TABLET.DR PO SCH (07:39)
[2024-10-10 08:02] LABS: POTASSIUM 2.8 mmol/L (3.5-5.1)
[2024-10-10] MEDS ORDERED: POTASSIUM CHLORIDE 20 MEQ TAB.PRT.SR PO ONE (08:30)
[2024-10-10] MEDS: POTASSIUM CHLORIDE 20 MEQ POWDER PACKET GT ONE (09:08)
[2024-10-10] MEDS ORDERED: IPRA12.9 IH (09:49)
[2024-10-10] MEDS ORDERED: TRAM50TA2 PO (09:49)
[2024-10-10] MEDS ORDERED: METO-357 PO (09:49)
[2024-10-10] MEDS ORDERED: FLUT16SP16 BNOSTRILS (09:49)
[2024-10-10] MEDS ORDERED: INSU100V39 SQ (09:49)
[2024-10-10] MEDS ORDERED: MONT10TA22 PO (09:49)
[2024-10-10] MEDS ORDERED: LACT100C2 PO (09:49)
[2024-10-10] MEDS ORDERED: AIRSUPRA IH (09:49)
[2024-10-10] MEDS ORDERED: CRAN300T PO (09:49)
[2024-10-10] MEDS ORDERED: AMLO2.5T4 PO (09:49)
[2024-10-10] MEDS ORDERED: ACET325T53 PO (09:49)
[2024-10-10] MEDS ORDERED: RIVA15TA PO (09:49)
[2024-10-10] MEDS ORDERED: MAGN400T52 PO (09:49)
[2024-10-10] MEDS ORDERED: TRAMADOL HCL 50 MG TABLET PO PRN (10:00)
[2024-10-10] MEDS ORDERED: predniSONE 50 MG TABLET PO SCH (10:00)
[2024-10-10] MEDS ORDERED: FLUTICASONE PROPIONATE 16 GM BOTTLE NS PRN (10:30)
[2024-10-10] MEDS: IPRATROPIUM NEB FS 0.5 MG/2.5 ML AMPUL.NEB NEB SCH (13:30)
[2024-10-10] MEDS: VANCOMYCIN 1 GM in IV D5W 250ml IV ONE (16:17)
[2024-10-10] MEDS: AMLODIPINE BESYLATE 2.5 MG TABLET PO SCH (16:17)
[2024-10-10] MEDS: METOPROLOL SUCCINATE 50 MG TAB.SR.24H PO SCH (16:18)
[2024-10-10] MEDS ORDERED: DEXTROSE 50%-WATER 50 ML DISP.SYRIN IV PRN (16:30)
[2024-10-10] MEDS: BLOOD SUGAR DIAGNOSTIC 1 EACH STRIP IN SCH (17:01)
[2024-10-10] MEDS: INSULIN REGULAR, HUMAN 100 UNIT/ML 3 ML VIAL SQ PRN (17:07)
[2024-10-10] MEDS: MONTELUKAST SODIUM (10MG) 10 MG TABLET PO SCH (21:05)
[2024-10-11] VITALS (13 sets, daily range): BP systolic 114–145; BP diastolic 69–80; TEMP 98–98.4; O2SAT 93–100
[2024-10-11] MEDS: predniSONE 20 MG TABLET PO SCH (08:28)
[2024-10-11] MEDS: RIVAROXABAN 15 MG TABLET PO SCH (08:29)
[2024-10-11] MEDS: MAGNESIUM OXIDE 400 MG TABLET PO SCH (08:30)
[2024-10-11] MEDS: VANCOMYCIN HCL 1.25 GM in IV D5W 250 ML IV SCH (15:19)
[2024-10-12] VITALS (12 sets, daily range): BP systolic 115–140; BP diastolic 65–80; TEMP 97.3–98.1; O2SAT 94–100
[2024-10-12 08:35] LABS: BASOPHILS # (AUTO) 0.1 K/uL (0.0-0.2); BASOPHILS % (AUTO) 0.7 % (0.0-2.0); EOSINOPHILS # (AUTO) 0.1 K/uL (0.0-0.7); EOSINOPHILS % (AUTO) 0.6 % (0.0-6.0); HEMATOCRIT 25 % (33-45); HEMOGLOBIN 8.3 g/dL (11.5-14.8); LYMPHOCYTES # (AUTO) 2.2 K/uL (0.8-4.8); LYMPHOCYTES % (AUTO) 20.5 % (20.0-44.0); MEAN CORPUSCULAR HEMOGLOBIN 27 PG (26.0-33.0); MEAN CORPUSCULAR HGB CONC 33 g/dl (31.0-36.0); MEAN CORPUSCULAR VOLUME 83 fL (82-100); MONOCYTES # (AUTO) 0.7 K/uL (0.1-1.30); MONOCYTES % (AUTO) 6.4 % (2.0-12.0); NEUTROPHILS # (AUTO) 7.6 K/uL (1.8-8.9); NEUTROPHILS % (AUTO) 71.8 % (43.0-81.0); PLATELET COUNT (AUTO) 328 K/uL (150-450); RED BLOOD CELL COUNT(AUTO) 3.04 MIL/uL (4.0-5.2); RED CELL DISTRIBUTION WIDTH 17.9 % (11.5-15.0); WHITE BLOOD COUNT (AUTO) 10.5 K/uL (4.3-11.0)
[2024-10-12 08:42] LABS: CALCIUM, SERUM 8.5 mg/dL (8.5-10.1); CREATININE 0.9 mg/dL (0.6-1.3); POTASSIUM 3.6 mmol/L (3.5-5.1)
[2024-10-12 09:30] LABS: LYMPHOCYTES % (MANUAL) 15 % (16-48); MONOCYTES % (MANUAL) 10 % (0-11.0); NEUTROPHILS % (MANUAL) 74 (42-76); PLATELET ESTIMATE ADEQUATE
[2024-10-12 09:31] LABS: ANISOCYTOSIS 1+
[2024-10-12 09:32] LABS: EOSINOPHILS % (MANUAL) 1 % (0-4)
[2024-10-12 12:25] LABS: CALCIUM, SERUM 8.4 mg/dL (8.5-10.1); CREATININE 0.9 mg/dL (0.6-1.3); POTASSIUM 3.6 mmol/L (3.5-5.1)
[2024-10-13] VITALS (12 sets, daily range): BP systolic 136–148; BP diastolic 71–77; TEMP 97.3–97.9; O2SAT 94–99
[2024-10-13] MEDS ORDERED: vancomycin (11:57)
[2024-10-13] MEDS ORDERED: vancomycin IV (11:58)
[2024-10-13 12:35] LABS: CALCIUM, SERUM 8.7 mg/dL (8.5-10.1); POTASSIUM 3.6 mmol/L (3.5-5.1)
== END 2024-10-13 17:07 | DRG 383 ==
LOC: ER 11:42 → TELE 14:17
PROVIDERS: ADMIT Nurse Practitioner Family; ATTEND Nurse Practitioner Family
DX: L03.114 Cellulitis of left upper limb (principal); G93.41 Metabolic encephalopathy; I50.33 Acute on chronic diastolic (congestive) heart failure; E44.1 Mild protein-calorie malnutrition; D68.59 Other primary thrombophilia; D63.8 Anemia in other chronic diseases classified elsewhere; E88.09 Other disorders of plasma-protein metabolism, not elsewhere classified; R62.7 Adult failure to thrive; F03.90 Unspecified dementia, unspecified severity, without behavioral disturbance, psychotic disturbance, mood disturbance, and anxiety; R60.9 Edema, unspecified; I11.0 Hypertensive heart disease with heart failure; I48.91 Unspecified atrial fibrillation; I25.10 Atherosclerotic heart disease of native coronary artery without angina pectoris; E07.9 Disorder of thyroid, unspecified; E66.9 Obesity, unspecified; E78.5 Hyperlipidemia, unspecified; Z88.0 Allergy status to penicillin; Z95.0 Presence of cardiac pacemaker; Z86.718 Personal history of other venous thrombosis and embolism; Z79.01 Long term (current) use of anticoagulants; Z86.73 Personal history of transient ischemic attack (TIA), and cerebral infarction without residual deficits; Z68.30 Body mass index [BMI] 30.0-30.9, adult; M79.622 Pain in left upper arm; E11.9 Type 2 diabetes mellitus without complications; J44.89 Other specified chronic obstructive pulmonary disease; Z66 Do not resuscitate
CPT/HCPCS: 36415; 71045-TC; 71250-TC; 73200-TC; 80048-TC; 80076-TC; 80202-TC; 81001; 82550-TC; 82962-TC; 83690-TC; 83735-TC; 83880; 84100-TC; 84132-TC; 84439-TC; 84443-TC; 84484-TC; 85025-TC; 87081-TC; 93307-TC; 93971-TC; 94760-TC; 94799-TC; 97110-TC; 97530-TC; A4223; G0378; J0360; J1650; J1815; J1938; J3370; J7050; J7060

== ENCOUNTER 2024-12-09 18:31 | Inpatient (IN) | payer MEDICAID ==
[~2024-12-09] VITALS: Ht 162.6 cm; Wt 70.8 kg
[2024-12-09] VITALS (9 sets, daily range): BP systolic 72–140; BP diastolic 46–79; O2SAT 94–99
[~2024-12-09 18:31] MED LIST changes: +ACET325T53 PO; +AIRSUPRA IH; -ALBU18HF2 IH; +AMLO2.5T4 PO; -APIX5TAB PO; +CRAN300T PO; +FLUT16SP16 BNOSTRILS; -FURO40TA5 PO; -HYDR-500 PO; +INSU100V39 SQ; +IPRA12.9 IH; +LACT100C2 PO; -LEVO500T90 PO; -LOSA25TA27 PO; +MAGN400T52 PO; +METO-357 PO; -METO25TA20 PO; +MONT10TA22 PO; -PRED50TA PO; +RIVA15TA PO; +TRAM50TA2 PO; +vancomycin IV
[2024-12-09] MEDS ORDERED: AMIN30LI66 PO (18:57)
[2024-12-09] MEDS ORDERED: ZINC220C6 PO (18:57)
[2024-12-09] MEDS ORDERED: ASCO500T10 PO (18:57)
[2024-12-09] MEDS ORDERED: MIRT7.5T10 PO (18:57)
[2024-12-09] MEDS ORDERED: GABA-532 PO (18:57)
[2024-12-09] MEDS ORDERED: RIVA10TA PO (18:57)
[2024-12-09] MEDS ORDERED: METO25TA3 PO (18:57)
[2024-12-09] MEDS ORDERED: MULT-213 PO (18:57)
[2024-12-09] MEDS ORDERED: VANC50SO3 PO (18:57)
[2024-12-09] MEDS ORDERED: VANC1VIA34 IV (18:57)
[2024-12-09] MEDS ORDERED: ZINC57OI4 TP (18:57)
[2024-12-09] MEDS ORDERED: FAMO20TA80 PO (18:57)
[2024-12-09] MEDS: IV LR 1000 ML 1,000 ML BAG IV ONE (19:00)
[2024-12-09] MEDS ORDERED: CEFEPIME 1 GM VIAL ONE (19:02)
[2024-12-09 19:07] LABS: ABG BASE EXCESS -11.5 mmol/L (-2.0-3.0); ABG OXYGEN SATURATION 97.9 % (94.0-98.0); ABG PCO2 81.6 mmHg (32.0-45.0); ABG PH 7.007 (7.350-7.450); ABG PO2 168.8 mmHg (83.0-108.0); ABG TOTAL HEMOGLOBIN 9.7 G/dL (12.0-16.0); FLOW, BLOOD GAS 15.00 L/min (0.00-30.00); FRACTIONATED INSPIRED OXYGEN 100.0 %; SITE, ABG LEFT RADIAL
[2024-12-09 19:20] LABS: CALCIUM, SERUM 7.6 mg/dL (8.5-10.1); CREATININE 1.8 mg/dL (0.6-1.3); SODIUM SERUM 148 mmol/L (136-145); UREA NITROGEN, BLOOD 42 mg/dL (7-18)
[2024-12-09] MEDS: CEFEPIME 1 GM in IV D5W 50 ML IV ONE (19:20)
[2024-12-09 19:21] LABS: INR 1.89 (0.91-1.10)
[2024-12-09 19:26] LABS: ALCOHOL, BLOOD < 3 mg/dL (0-10); ASPARTATE AMINOTRANSFERASE 16 U/L (15-37); TOTAL PROTEIN, SERUM 5.5 g/dL (6.4-8.2)
[2024-12-09 19:30] LABS: LACTIC ACID 2.4 mmol/L (0.4-2.0)
[2024-12-09 19:33] LABS: PLATELET COUNT (AUTO) 406 K/uL (150-450); RED BLOOD CELL COUNT(AUTO) 3.32 MIL/uL (4.0-5.2); RED CELL DISTRIBUTION WIDTH 26.2 % (11.5-15.0); WHITE BLOOD COUNT (AUTO) 17.1 K/uL (4.3-11.0)
[2024-12-09] MEDS: ALBUTEROL FS 2.5 MG/3 ML VIAL.NEB NEB ONE (19:39)
[2024-12-09] MEDS: IPRATROPIUM NEB FS 0.5 MG/2.5 ML AMPUL.NEB NEB ONE (19:39)
[2024-12-09] MEDS ORDERED: IPRATROPIUM NEB FS 0.5 MG/2.5 ML AMPUL.NEB ONE (19:40)
[2024-12-09] MEDS ORDERED: ALBUTEROL FS 2.5 MG/3 ML VIAL.NEB ONE (19:40)
[2024-12-09] MEDS: ONDANSETRON HCL/PF - ER 4 MG/2 ML VIAL IV ONE (20:00)
[2024-12-09] MEDS: VANCOMYCIN 1 GM in IV D5W 250 ML IV ONE (20:00)
[2024-12-09] MEDS ORDERED: ONDANSETRON HCL/PF 4 MG/2 ML VIAL ONE (20:05)
[2024-12-09] MEDS ORDERED: VANCOMYCIN 1 GM /D5W 250 ML PB IV ONE (20:05)
[2024-12-09] MEDS ORDERED: ACETAMINOPHEN 650 MG/SUPP.RECT RC PRN (20:30)
[2024-12-09] MEDS ORDERED: DEXTROSE 50%-WATER 50 ML DISP.SYRIN IV PRN (20:30)
[2024-12-09] MEDS ORDERED: ONDANSETRON HCL/PF 4 MG/2 ML VIAL IVP PRN (20:30)
[2024-12-09 20:45] LABS: ABG BASE EXCESS -11.1 mmol/L (-2.0-3.0); ABG OXYGEN SATURATION 92.0 % (94.0-98.0); ABG PCO2 58.0 mmHg (32.0-45.0); ABG PH 7.110 (7.350-7.450); ABG PO2 86.1 mmHg (83.0-108.0); ABG TOTAL HEMOGLOBIN 8.5 G/dL (12.0-16.0); FRACTIONATED INSPIRED OXYGEN 70.0 %; SET RATE, BG 20.0; SITE, ABG LEFT RADIAL
[2024-12-09] MEDS: NOREPINEPHRINE 8 MG in IV NS 0.9% 250 ML IV PRN (21:54)
[2024-12-09] MEDS: NOREPINEPHRINE 8MG/250ML RTU 250 ML IV ONE (22:18)
[2024-12-09] MEDS: BLOOD SUGAR DIAGNOSTIC 1 EACH STRIP IN SCH (22:22)
[2024-12-09] MEDS: INSULIN REGULAR, HUMAN 100 UNIT/ML 3 ML VIAL SQ PRN (22:55)
[2024-12-09] MEDS ORDERED: DOSING PER PHARMACY-VANCOMYCIN IV XX PRN (23:00)
[2024-12-09] MEDS ORDERED: DOSING PER PHARMACY-CEFEPIME IVPB XX PRN (23:00)
[2024-12-09] MEDS ORDERED: BUMETANIDE INJ 0.25 MG/ML VIAL ONE ×2 (23:41→23:47)
[2024-12-10] VITALS (37 sets, daily range): BP systolic 92–137; BP diastolic 45–90; TEMP 97.6–98.8; O2SAT 95–100
[2024-12-10] MEDS: BUMETANIDE INJ 4 MG in IV NS 0.9% 24 ML IV ONE (00:17)
[2024-12-10 04:53] LABS: PLATELET COUNT (AUTO) 303 K/uL (150-450); RED BLOOD CELL COUNT(AUTO) 2.95 MIL/uL (4.0-5.2); RED CELL DISTRIBUTION WIDTH 26.0 % (11.5-15.0); WHITE BLOOD COUNT (AUTO) 18.4 K/uL (4.3-11.0)
[2024-12-10] MEDS: NOREPINEPHRINE 8 MG in IV D5W 242 ML IV PRN (05:11)
[2024-12-10 05:24] LABS: LACTIC ACID 1.5 mmol/L (0.4-2.0)
[2024-12-10 05:32] LABS: CALCIUM, SERUM 7.6 mg/dL (8.5-10.1); CREATININE 1.9 mg/dL (0.6-1.3); SODIUM SERUM 151.0 mmol/L (136-145); UREA NITROGEN, BLOOD 44.0 mg/dL (7-18)
[2024-12-10 06:20] LABS: ABG BASE EXCESS -6.6 mmol/L (-2.0-3.0); ABG OXYGEN SATURATION 98.5 % (94.0-98.0); ABG PCO2 25.6 mmHg (32.0-45.0); ABG PH 7.431 (7.350-7.450); ABG PO2 139.2 mmHg (83.0-108.0); ABG TOTAL HEMOGLOBIN 8.5 G/dL (12.0-16.0); FRACTIONATED INSPIRED OXYGEN 70.0 %; SET RATE, BG 20.0; SITE, ABG LEFT BRACHIAL
[2024-12-10 07:00] LABS: APPEARANCE,URINE CLOUDY (CLEAR); BLOOD, URINE 3+ Ery/uL (NEGATIVE); LEUKOCYTE ESTERASE ,URINE 3+ (NEGATIVE); NITRITE, URINE NEGATIVE (NEGATIVE); UGLUCOSE NEGATIVE (NEGATIVE)
[2024-12-10 07:10] LABS: ADD URINE CULTURE YES; SQUAMOUS EPITHELIAL CELL,UR 0-2 /HPF (None Seen)
[2024-12-10 07:28] LABS: LDL 43 mg/dL (0-99)
[2024-12-10] MEDS: PANTOPRAZOLE 40 MG VIAL IV SCH (08:04)
[2024-12-10] MEDS: HEPARIN SODIUM, PORCINE 5000 UNITS/1 ML VIAL SQ SCH (08:10)
[2024-12-10 09:17] LABS: ABG BASE EXCESS -5.5 mmol/L (-2.0-3.0); ABG OXYGEN SATURATION 97.0 % (94.0-98.0); ABG PCO2 21.1 mmHg (32.0-45.0); ABG PH 7.510 (7.350-7.450); ABG PO2 97.4 mmHg (83.0-108.0); ABG TOTAL HEMOGLOBIN 8.3 G/dL (12.0-16.0); FLOW, BLOOD GAS 2.00 L/min (0.00-30.00); FRACTIONATED INSPIRED OXYGEN 28.0 %
[2024-12-10] MEDS: FUROSEMIDE 20 MG/2 ML VIAL IV SCH (09:36)
[2024-12-10] MEDS: IPRATROPIUM NEB FS 0.5 MG/2.5 ML AMPUL.NEB NEB SCH (11:31)
[2024-12-10] MEDS: CEFEPIME 2 GM in IV D5W 100 ML IV SCH (18:00)
[2024-12-11] VITALS (32 sets, daily range): BP systolic 110–148; BP diastolic 53–89; TEMP 97.1–98.1; O2SAT 94–100
[2024-12-11 05:25] LABS: PLATELET COUNT (AUTO) 290 K/uL (150-450); RED BLOOD CELL COUNT(AUTO) 2.89 MIL/uL (4.0-5.2); RED CELL DISTRIBUTION WIDTH 25.7 % (11.5-15.0); WHITE BLOOD COUNT (AUTO) 17.2 K/uL (4.3-11.0)
[2024-12-11 06:06] LABS: CALCIUM, SERUM 7.6 mg/dL (8.5-10.1); CREATININE 1.7 mg/dL (0.6-1.3); PHOSPHORUS 3.2 mg/dL (2.5-4.9); SODIUM SERUM 152.0 mmol/L (136-145); UREA NITROGEN, BLOOD 45.0 mg/dL (7-18)
[2024-12-11] MEDS: POTASSIUM CL. PREMIX PERIPHER. 50 ML IV SCH (10:38)
[2024-12-11] MEDS: VANCOMYCIN 750 MG in IV D5W 250 ML IV SCH (19:01)
[2024-12-12] VITALS (22 sets, daily range): BP systolic 125–152; BP diastolic 59–73; TEMP 97.5–99; O2SAT 97–100
[2024-12-12 05:07] LABS: PLATELET COUNT (AUTO) 273 K/uL (150-450); RED BLOOD CELL COUNT(AUTO) 3.00 MIL/uL (4.0-5.2); RED CELL DISTRIBUTION WIDTH 25.7 % (11.5-15.0); WHITE BLOOD COUNT (AUTO) 19.1 K/uL (4.3-11.0)
[2024-12-12 05:18] LABS: PHOSPHORUS 2.7 mg/dL (2.5-4.9)
[2024-12-12 09:12] LABS: CALCIUM, SERUM 7.6 mg/dL (8.5-10.1); CREATININE 1.7 mg/dL (0.6-1.3); SODIUM SERUM 150.0 mmol/L (136-145); UREA NITROGEN, BLOOD 46.0 mg/dL (7-18)
[2024-12-12] MEDS ORDERED: IV D5/ 0.9% NACL 1,000 ML IV PRN (10:30)
[2024-12-12] MEDS: IV D5/0.45 NACL 1,000 ML IV PRN (12:41)
[2024-12-12] MEDS: LINEZOLID RTU BAG 600 MG in PREMIX 1 EA IV SCH (19:38)
[2024-12-13] VITALS (14 sets, daily range): BP systolic 115–130; BP diastolic 53–78; TEMP 97.5–98; O2SAT 95–99
[2024-12-13 10:52] LABS: PLATELET COUNT (AUTO) 222 K/uL (150-450); RED BLOOD CELL COUNT(AUTO) 3.11 MIL/uL (4.0-5.2); RED CELL DISTRIBUTION WIDTH 25.8 % (11.5-15.0); WHITE BLOOD COUNT (AUTO) 15.5 K/uL (4.3-11.0)
[2024-12-13 12:24] LABS: CALCIUM, SERUM 6.8 mg/dL (8.5-10.1); CREATININE 1.5 mg/dL (0.6-1.3); SODIUM SERUM 147.0 mmol/L (136-145); UREA NITROGEN, BLOOD 38.0 mg/dL (7-18)
[2024-12-13] MEDS: POTASSIUM CL. PREMIX PERIPHER. 50 ML IV SCH ×2 (12:54→17:46)
[2024-12-13] MEDS ORDERED: POTASSIUM CL. PREMIX PERIPHER. 50 ML IV SCH (14:00)
[2024-12-14] VITALS (10 sets, daily range): BP systolic 115–133; BP diastolic 53–68; TEMP 97–97.9; O2SAT 94–100
[2024-12-14 07:00] LABS: CALCIUM, SERUM 7.0 mg/dL (8.5-10.1); CREATININE 1.5 mg/dL (0.6-1.3); SODIUM SERUM 143.0 mmol/L (136-145); UREA NITROGEN, BLOOD 32.0 mg/dL (7-18)
[2024-12-14 10:41] LABS: PLATELET COUNT (AUTO) 219 K/uL (150-450); RED BLOOD CELL COUNT(AUTO) 3.06 MIL/uL (4.0-5.2); RED CELL DISTRIBUTION WIDTH 24.7 % (11.5-15.0); WHITE BLOOD COUNT (AUTO) 15.7 K/uL (4.3-11.0)
[2024-12-14] MEDS ORDERED: CEFE2FRO IV (11:11)
[2024-12-14] MEDS ORDERED: LINE600I IV (11:11)
[2024-12-14] MEDS: PANTOPRAZOLE 40 MG/PACK PACK PO SCH (11:39)
[2024-12-14] MEDS: POTASSIUM CL. PREMIX PERIPHER. 50 ML IV SCH (15:23)
== END 2024-12-14 15:17 | DRG 720 ==
LOC: ER 18:35 → ICU 20:30 → TELE1 12-12 12:24
PROVIDERS: ADMIT Registered Nurse Psychiatric/Mental Health; ATTEND Nurse Practitioner Acute Care
PROC: 5A09357 Assistance with Respiratory Ventilation, Less than 24 Consecutive Hours, Continuous Positive Airway Pressure (ICD-10-PCS; principal; 2024-12-09)
DX: A41.81 Sepsis due to Enterococcus (principal); J96.01 Acute respiratory failure with hypoxia; I50.33 Acute on chronic diastolic (congestive) heart failure; E87.20 Acidosis, unspecified; E87.0 Hyperosmolality and hypernatremia; E44.1 Mild protein-calorie malnutrition; D63.8 Anemia in other chronic diseases classified elsewhere; E83.51 Hypocalcemia; I27.20 Pulmonary hypertension, unspecified; I13.0 Hypertensive heart and chronic kidney disease with heart failure and stage 1 through stage 4 chronic kidney disease, or unspecified chronic kidney disease; J18.9 Pneumonia, unspecified organism; N17.9 Acute kidney failure, unspecified; J90 Pleural effusion, not elsewhere classified; E11.22 Type 2 diabetes mellitus with diabetic chronic kidney disease; F03.90 Unspecified dementia, unspecified severity, without behavioral disturbance, psychotic disturbance, mood disturbance, and anxiety; R65.20 Severe sepsis without septic shock; J96.02 Acute respiratory failure with hypercapnia; N39.0 Urinary tract infection, site not specified; N18.30 Chronic kidney disease, stage 3 unspecified; Z66 Do not resuscitate; Z20.822 Contact with and (suspected) exposure to COVID-19; I48.91 Unspecified atrial fibrillation; I25.10 Atherosclerotic heart disease of native coronary artery without angina pectoris; J45.909 Unspecified asthma, uncomplicated; Z86.73 Personal history of transient ischemic attack (TIA), and cerebral infarction without residual deficits; Z95.0 Presence of cardiac pacemaker; Z96.643 Presence of artificial hip joint, bilateral; Z88.0 Allergy status to penicillin; E78.5 Hyperlipidemia, unspecified; Z79.01 Long term (current) use of anticoagulants; Z79.51 Long term (current) use of inhaled steroids; Z79.4 Long term (current) use of insulin; Z79.899 Other long term (current) drug therapy; E03.9 Hypothyroidism, unspecified; F09 Unspecified mental disorder due to known physiological condition; E11.65 Type 2 diabetes mellitus with hyperglycemia; E88.09 Other disorders of plasma-protein metabolism, not elsewhere classified; E87.6 Hypokalemia; I08.0 Rheumatic disorders of both mitral and aortic valves; I48.21 Permanent atrial fibrillation; Z86.718 Personal history of other venous thrombosis and embolism; M17.0 Bilateral primary osteoarthritis of knee; R62.7 Adult failure to thrive; Z16.21 Resistance to vancomycin; D32.0 Benign neoplasm of cerebral meninges; S81.812A Laceration without foreign body, left lower leg, initial encounter; S81.811A Laceration without foreign body, right lower leg, initial encounter; X58.XXXA Exposure to other specified factors, initial encounter; Y92.9 Unspecified place or not applicable; R23.3 Spontaneous ecchymoses
CPT/HCPCS: 36415; 36600; 70450-TC; 71045-TC; 80048-TC; 80061-TC; 80076-TC; 80202-TC; 81001; 82803-TC; 82962-TC; 83605-TC; 83735-TC; 83880; 84100-TC; 84439-TC; 84443-TC; 84484-TC; 85025-TC; 85730-TC; 87040-TC; 87081-TC; 87086-TC; 87186-TC; 92526; 92611; 94760-TC; 94799-TC; 99082-TC; A4216; A4223; A6213; A6253; A6254; G0378; G0480; J0692; J1644; J1815; J1938; J2020; J2405; J2470; J2919; J3373; J3374; J3480; J3490; J7030; J7040; J7042; J7050; J7060; J7120

== ENCOUNTER 2024-12-18 13:57 | Emergency (ER) | payer MEDICAID ==
[~2024-12-18] VITALS: Ht 167.6 cm; Wt 73.0 kg
[~2024-12-18 13:57] MED LIST changes: +AMIN30LI66 PO; -AMLO2.5T4 PO; +ASCO500T10 PO; +CEFE2FRO IV; +FAMO20TA80 PO; +GABA-532 PO; +LINE600I IV; -METO-357 PO; +METO25TA3 PO; +MIRT7.5T10 PO; +MULT-213 PO; +RIVA10TA PO; -RIVA15TA PO; +ZINC220C6 PO; +ZINC57OI4 TP; -vancomycin IV
[2024-12-18 18:19] LABS: INR 1.68 (0.91-1.10)
[2024-12-18 18:20] LABS: CALCIUM, SERUM 7.0 mg/dL (8.5-10.1); CREATININE 1.4 mg/dL (0.6-1.3); SODIUM SERUM 142.0 mmol/L (136-145); UREA NITROGEN, BLOOD 25.0 mg/dL (7-18)
[2024-12-18 18:24] LABS: PLATELET COUNT (AUTO) 232 K/uL (150-450); RED BLOOD CELL COUNT(AUTO) 2.99 MIL/uL (4.0-5.2); RED CELL DISTRIBUTION WIDTH 23.5 % (11.5-15.0); WHITE BLOOD COUNT (AUTO) 8.9 K/uL (4.3-11.0)
[2024-12-18] MEDS ORDERED: POTASSIUM CHLORIDE 20 MEQ TAB.PRT.SR PO ONE ×2 (18:28→18:30)
[2024-12-18] MEDS: POTASSIUM CHLORIDE 20 MEQ TAB.PRT.SR PO ONE (18:46)
[2024-12-18 23:00] VITALS: BP 121/65; TEMP 98; O2SAT 100
== END 2024-12-18 23:01 ==
LOC: ER 14:09
DX: Z45.2 Encounter for adjustment and management of vascular access device (principal); R41.0 Disorientation, unspecified; M79.642 Pain in left hand; R22.32 Localized swelling, mass and lump, left upper limb; E78.5 Hyperlipidemia, unspecified; E87.6 Hypokalemia; I13.0 Hypertensive heart and chronic kidney disease with heart failure and stage 1 through stage 4 chronic kidney disease, or unspecified chronic kidney disease; E11.22 Type 2 diabetes mellitus with diabetic chronic kidney disease; I50.9 Heart failure, unspecified; N18.9 Chronic kidney disease, unspecified; I48.91 Unspecified atrial fibrillation; J44.9 Chronic obstructive pulmonary disease, unspecified; Z66 Do not resuscitate; Z79.01 Long term (current) use of anticoagulants; Z79.899 Other long term (current) drug therapy; Z86.718 Personal history of other venous thrombosis and embolism; Z86.73 Personal history of transient ischemic attack (TIA), and cerebral infarction without residual deficits; Z87.440 Personal history of urinary (tract) infections; Z88.0 Allergy status to penicillin; Z95.0 Presence of cardiac pacemaker; Z95.828 Presence of other vascular implants and grafts; Z96.643 Presence of artificial hip joint, bilateral
CPT/HCPCS: 36415; 71045-TC; 80048-TC; 85025-TC; 85730-TC; 93971-TC